=== PATIENT | male | born 1970 | race Two or more races ===

== ENCOUNTER 2021-08-05 18:24 | Emergency (ER) | payer OTHER ==
[~2021-08-05] VITALS: Ht 172.7 cm; Wt 85.3 kg
[2021-08-05] MEDS ORDERED: LIPITOR20 MG PO (18:41)
[2021-08-05] MEDS ORDERED: GLUMETZA500 MG PO (18:41)
[2021-08-05] MEDS ORDERED: ZOLOFT20 MG/1 ML PO (18:41)
[2021-08-05] MEDS ORDERED: BUSPIRONE HCL5 MG PO (18:42)
== END 2021-08-06 10:28 | disposition home or self-care (01) ==
LOC: ER 18:24
DX: S00.83XA Contusion of other part of head, initial encounter (principal); X58.XXXA Exposure to other specified factors, initial encounter; Y93.89 Activity, other specified; Y92.89 Other specified places as the place of occurrence of the external cause; Y99.9 Unspecified external cause status; R42 Dizziness and giddiness; R11.0 Nausea; R00.1 Bradycardia, unspecified; I10 Essential (primary) hypertension; E11.9 Type 2 diabetes mellitus without complications; Z79.84 Long term (current) use of oral hypoglycemic drugs; F41.9 Anxiety disorder, unspecified; Z20.822 Contact with and (suspected) exposure to COVID-19

== ENCOUNTER 2021-11-04 19:31 | Emergency (ER) | payer OTHER ==
[~2021-11-04] VITALS: Ht 172.7 cm; Wt 86.2 kg
[~2021-11-04 19:31] MED LIST: BUSPIRONE HCL5 MG PO; GLUMETZA500 MG PO; LIPITOR20 MG PO; ZOLOFT20 MG/1 ML PO
[2021-11-04] MEDS ORDERED: IBU800 MG PO (23:11)
== END 2021-11-04 23:20 | disposition home or self-care (01) ==
LOC: ER 19:31
DX: M25.512 Pain in left shoulder (principal); Z91.013 Allergy to seafood

== ENCOUNTER 2021-12-11 20:00 | Emergency (ER) | payer OTHER ==
[~2021-12-11] VITALS: Ht 172.7 cm; Wt 86.2 kg
[~2021-12-11 20:00] MED LIST changes: +IBU800 MG PO
== END 2021-12-11 22:17 | disposition home or self-care (01) ==
LOC: ER 20:00
DX: M25.512 Pain in left shoulder (principal); Z91.013 Allergy to seafood

== ENCOUNTER 2022-03-31 18:27 | Emergency (ER) | payer OTHER ==
[~2022-03-31] VITALS: Ht 167.6 cm; Wt 90.7 kg
== END 2022-04-01 00:58 | disposition home or self-care (01) ==
LOC: ER 18:27
DX: U07.1 COVID-19 (principal); A08.4 Viral intestinal infection, unspecified

== ENCOUNTER 2022-05-19 10:11 | Emergency (ER) | payer OTHER ==
[~2022-05-19] VITALS: Ht 172.7 cm; Wt 77.1 kg
== END 2022-05-19 13:33 | disposition home or self-care (01) ==
LOC: ER 10:11
DX: B34.9 Viral infection, unspecified (principal); Z20.822 Contact with and (suspected) exposure to COVID-19; Z91.013 Allergy to seafood

== ENCOUNTER 2023-05-22 18:48 | Emergency (ER) | payer OTHER ==
[~2023-05-22] VITALS: Ht 172.7 cm; Wt 81.6 kg
[2023-05-22] MEDS ORDERED: KETOROLAC TROMETHAMINE 60 MG VIAL IM ONE (23:30)
[2023-05-22] MEDS ORDERED: DEXAMETHASONE SODIUM PHOSPHATE 4 MG/ML VIAL IM ONE (23:30)
== END 2023-05-23 00:03 | disposition home or self-care (01) ==
LOC: ER 18:48
DX: K64.8 Other hemorrhoids (principal)

== ENCOUNTER 2023-05-28 14:51 | Emergency (ER) | payer OTHER ==
[~2023-05-28] VITALS: Ht 172.7 cm; Wt 86.2 kg
[2023-05-28] MEDS ORDERED: TRAMADOL HCL 50 MG TABLET PO ONE (17:15)
[2023-05-28] MEDS ORDERED: KETOROLAC TROMETHAMINE 30 MG VIAL IM ONE (17:15)
[2023-05-28 18:23] LABS: HEMATOCRIT 42.2 % (39.0-48.0); HEMOGLOBIN 14.1 g/dL (13-16.00); MEAN CORPUSCULAR HEMOGLOBIN 28.7 pg (27.00-32.0); MEAN CORPUSCULAR HGB CONC 33.4 g/dl (32.0-36.0); PLATELET COUNT 202 K/uL (150-450); RED BLOOD COUNT 4.91 M/uL (4.00-6.00); RED CELL DISTRIBUTION WIDTH 12.9 % (11.5-14.5)
== END 2023-05-28 19:07 | disposition home or self-care (01) ==
LOC: ER 14:51
PROVIDERS: General Practice
DX: K64.8 Other hemorrhoids (principal); Z91.013 Allergy to seafood

== ENCOUNTER 2024-08-27 10:32 | Emergency (ER) | payer OTHER ==
[~2024-08-27] VITALS: Ht 172.7 cm; Wt 86.2 kg
[2024-08-27] MEDS ORDERED: ACETAMINOPHEN 500 MG GEL..CAP PO STA (14:27)
[2024-08-27] MEDS ORDERED: BENZONATATE 200 MG CAPSULE PO STA (14:28)
[2024-08-27] MEDS ORDERED: ACETAMINOPHEN 500 MG GEL..CAP PO ONE (14:36)
[2024-08-27 15:19] LABS: BASO % 0.4 % (0.1-1.2); EOS # 0.29 (0.04-0.54); EOS % 5.2 % (0.7-7.0); HEMATOCRIT 44.6 % (40.1-51.0); HEMOGLOBIN 14.2 g/dL (13.7-17.5); LYMPH % 30.6 % (19.3-53.1); MEAN CORPUSCULAR HEMOGLOBIN 27.3 pg (25.6-32.2); MONO % 10.8 % (4.7-12.5); NEUT # 2.94 (1.56-6.13); NEUT % 52.8 % (34.0-71.1); PLATELET COUNT 198 K/uL (163-369); RED BLOOD COUNT 5.21 M/uL (4.63-6.08); RED CELL DISTRIBUTION WIDTH 12.4 % (11.6-14.4)
[2024-08-27 15:54] LABS: CALCIUM 8.9 mg/dL (8.5-10.1); POTASSIUM 4.21 mEq/L (3.5-5.1)
[2024-08-27 16:01] LABS: ALBUMIN 3.9 gm/dL (3.4-5.0); BILIRUBIN TOTAL 0.27 mg/dL (0.3-1.2); CREATININE SERUM 0.88 mg/dL (0.70-1.30); GFR 90.59; GLOBULINA 3.5 G/DL (2.4-3.5); TOTAL PROTEIN 7.4 gm/dL (6.4-8.2)
[2024-08-27 16:57] LABS: COVID-19 AG NEGATIVE (NEGATIVE)
[2024-08-27 17:10] LABS: INFLUENZA A AG NEGATIVE (NEGATIVE)
[2024-08-27] MEDS ORDERED: GILTUSS HONEY118 ML PO (17:43)
[2024-08-27] MEDS ORDERED: BENZONATATE200 M1 PO (17:43)
== END 2024-08-27 18:16 | disposition home or self-care (01) ==
LOC: ER 10:50
PROVIDERS: Preventive Medicine Public Health & General Preventive Medicine
DX: B34.9 Viral infection, unspecified (principal); Z91.013 Allergy to seafood; Z20.822 Contact with and (suspected) exposure to COVID-19

== ENCOUNTER 2024-11-12 13:49 | Emergency (ER) | payer OTHER ==
[~2024-11-12] VITALS: Ht 172.7 cm; Wt 81.6 kg
[~2024-11-12 13:49] MED LIST changes: +BENZONATATE200 M1 PO; +GILTUSS HONEY118 ML PO
[2024-11-12] MEDS ORDERED: KETOROLAC TROMETHAMINE 30 MG VIAL IM ONE (14:30)
[2024-11-12] MEDS ORDERED: CETIRIZINE HCL 5 MG/5 ML ML PO ONE (14:30)
[2024-11-12 15:50] LABS: BASO % 0.7 % (0.1-1.2); EOS # 0.27 (0.04-0.54); EOS % 6.1 % (0.7-7.0); LYMPH # 1.28 (1.18-3.74); LYMPH % 28.8 % (19.3-53.1); MEAN PLATELET VOLUME 9.50 fl (9.4-12.4); MONO # 0.64 (0.24-0.82); NEUT # 2.21 (1.56-6.13); NEUT % 49.6 % (34.0-71.1); RED CELL DISTRIBUTION WIDTH 12.5 % (11.6-14.4)
[2024-11-12 15:51] LABS: MONO % 14.4 % (4.7-12.5)
[2024-11-12 16:29] LABS: COVID-19 AG NEGATIVE (NEGATIVE)
[2024-11-12] MEDS ORDERED: ZYRTEC10 MG PO (18:21)
[2024-11-12] MEDS ORDERED: FLONASE16 GM NASAL (18:21)
[2024-11-12] MEDS ORDERED: MUCINEX DM ER1 EACH PO (18:21)
== END 2024-11-12 18:01 | disposition home or self-care (01) ==
LOC: ER 13:49
PROVIDERS: General Practice
DX: J06.9 Acute upper respiratory infection, unspecified (principal); R09.81 Nasal congestion; M19.90 Unspecified osteoarthritis, unspecified site; Z91.013 Allergy to seafood; Z20.822 Contact with and (suspected) exposure to COVID-19